=== PATIENT | female | born 1965 | race Caucasian/White ===

== ENCOUNTER 2020-09-14 20:30 | Emergency (ER) | payer MEDICARE ==
[2020-09-14] MEDS ORDERED: HYDROmorphone 0.5 MG/0.5 ML Syringe IVPUSH ONE (21:06)
[2020-09-14] MEDS ORDERED: Sodium Chloride 0.9% 1,000 ML IV ONE (21:06)
[2020-09-14] MEDS ORDERED: Ondansetron 4 MG/2 ML SDV ONE (21:28)
[2020-09-14] MEDS ORDERED: Ondansetron 4 MG/2 ML SDV IVPUSH ONE (21:32)
--- NOTE | 2020-09-14 22:16 | CRLCT ---
INDICATION: Right lower quadrant pain COMPARISON: None available TECHNIQUE: CT examination of the abdomen and pelvis was performed without contrast enhancement using 3 mm thick axial sections from the lung bases through the pubic symphysis. Oral contrast was not administered. Please note that all CT scans at this facility use dose modulation, iterative reconstruction, and/or weight-based dosing when appropriate to reduce radiation dose to as low as reasonably achievable. FINDINGS: In the abdomen, the unenhanced liver, spleen, pancreas, and adrenals are normal in appearance. The unenhanced kidneys are normal in appearance. The gallbladder is normal in appearance. The abdominal aorta is normal in caliber with no sign of dilatation. There is no sign of retroperitoneal mass or adenopathy. The stomach, loops of small bowel, and colon in the abdomen are normal in appearance. There is a tiny fat containing periumbilical hernia. In the pelvis, the appendix is normal in appearance with no sign of inflammatory process. The loops of small bowel and colon in the pelvis are normal in appearance. The uterus is absent and the adnexal regions are normal in appearance. The urinary bladder is normal in appearance. There is no sign of pelvic or inguinal mass or adenopathy. There is no sign of free air or free fluid in the abdomen or pelvis. There are mild patchy infiltrates in the posterior portion of the right lower lobe on the most superior images on with minimal patchy infiltrate in the posterior left lower lobe in the same region. These could be early atypical pneumonia such as COVID-19. Recommend correlation with the clinical history. There is mild L1-2 and L2-3 disc degenerative disease. The rest of the osseous structures in the lumbar spine are normal in appearance. The distal 2 coccygeal segments are absent, possibly from erosion or resection. IMPRESSION: Nothing seen to explain the patient`s right lower quadrant pain. Normal appearance of the appendix, urinary system, and right adnexal region. Normal CT of the abdomen without contrast. Normal CT of the pelvis without contrast. Mild posterior right lower lobe and minimal posterior left lower lobe patchy infiltrates could represent an early atypical pneumonia such as COVID-19. Recommend correlation with the clinical exam. Please note that all CT scans at this facility use dose modulation, iterative reconstruction, and/or weight-based dosing when appropriate to reduce radiation dose to as low as reasonably achievable. Dictated by Alvarado Dunne MD @ Sep 14 2020 10:08PM Signed by Dr. Alvarado Dunne @ Sep 14 2020 10:15PM
--- NOTE | 2020-09-14 22:28 | EDM.PDOC ---
ED HPI GENERAL MEDICAL PROBLEM - General Chief Complaint: Abdominal Pain Stated Complaint: PAIN LOWER RIGHT SIDE Time Seen by Provider: 09/14/20 20:45 Source of Information: Reports: Patient History Limitations: Reports: No Limitations - History of Present Illness INITIAL COMMENTS - FREE TEXT/NARRATIVE: 55-year-old female with worsening right lower quadrant pain for the past 2 weeks. Today it became very painful so she came in to have it checked. Intermittent chills but no fever, some nausea but no vomiting, no bowel changes or urinary symptoms. No radiation of pain to the back. Onset: Gradual Duration: Week(s): (2 weeks) Location: Reports: Abdomen (Right lower quadrant in the abdomen) Worsens with: Reports: Other (Walking, movement or trying to sit increases pain) Right Lower Abdomen Pain Score (Numeric/FACES): 6 - Related Data Allergies Allergy/AdvReac Type Severity Reaction Status Date / Time mold Allergy Cannot Verified 09/14/20 20:47 Remember Sayqyef-Quh-Uon Reductase Allergy Cannot Verified 09/14/20 20:47 Inhibitor Remember venom-honey bee Allergy Hives Verified 09/14/20 20:47 [bee venom (honey bee)] morphine AdvReac Vomiting Verified 09/14/20 20:47 Home Meds: Home Meds Celecoxib [CeleBREX] 200 mg PO DAILY 04/07/14 [History] Cyclobenzaprine [Flexeril] 10 mg PO TID PRN 04/07/14 [History] Gabapentin 600 mg PO QID 04/07/14 [History] PARoxetine HCL [Paxil] 40 mg PO DAILY 04/07/14 [History] Albuterol Sulfate [Proair Hfa] 2 puff ORAL.INH Q6H PRN 06/15/16 [History] Amitriptyline [Elavil] 50 mg PO BEDTIME 06/15/16 [History] EPINEPHrine [Epipen 2-Wilner] 0.3 ml IM ASDIRECTED PRN 06/15/16 [History] Fenofibrate Nanocrystallized [Tricor] 145 mg PO DAILY 06/15/16 [History] Fluconazole [Diflucan] 1 tab PO ASDIRECTED 06/15/16 [History] Lerona-3 Fatty Acids [Lerona-3] 1 tab PO DAILY 06/15/16 [History] Hydrocodone/Acetaminophen [Hydrocodon-Acetaminophen 5-325] 1 each PO Q4HR PRN 12/02/16 [History] Past Medical History HEENT History: Reports: Impaired Vision Respiratory History: Reports: Asthma Gastrointestinal History: Reports: Cholelithiasis Genitourinary History: Reports: None DIRECT CARE PROVIDER History: Reports: Dysfunctional Uterine Bleeding, Other DIRECT CARE PROVIDER History: partial hysterectomy Musculoskeletal History: Reports: Arthritis, Back Pain, Chronic, Fibromyalgia Psychiatric History: Reports: Anxiety, Depression - Infectious Disease History Infectious Disease History: Reports: Chicken Pox, Shingles - Past Surgical History Respiratory Surgical History: Reports: None GI Surgical History: Reports: Cholecystectomy, Colonoscopy Female Surgical History: Reports: Hysterectomy Neurological Surgical History: Reports: None Other Musculoskeletal Surgeries/Procedures:: broken tail bone healed wrong way Social & Family History - Tobacco Use Tobacco Use Status *Q: Current Every Day Tobacco User Years of Tobacco use: 25 Packs/Tins Daily: 1 - Caffeine Use Caffeine Use: Reports: Coffee, Soda, Tea - Alcohol Use Date of Last Drink: 08/30/20 - Recreational Drug Use Recreational Drug Use: No ED ROS GENERAL - Review of Systems Review Of Systems: See Below Constitutional: Reports: Chills HEENT: Reports: No Symptoms Respiratory: Denies: Shortness of Breath Cardiovascular: Denies: Chest Pain Endocrine: Denies: Fatigue GI/Abdominal: Reports: Abdominal Pain, Nausea. Denies: Constipation, Diarrhea, Vomiting : Reports: No Symptoms Musculoskeletal: Reports: Other (Chronic back pain, fibromyalgia) Skin: Reports: No Symptoms Neurological: Denies: Headache ED EXAM, GI/ABD - Physical Exam Exam: See Below Exam Limited By: No Limitations General Appearance: Alert, No Apparent Distress Eyes: Bilateral: Normal Appearance Head: Atraumatic Respiratory/Chest: No Respiratory Distress, Lungs Clear Cardiovascular: Regular Rate, Rhythm GI/Abdominal Exam: Soft, Tender (She is tender in the extreme right lower abdomen just above the inguinal ligament, there is no distention or bruising. She does have some rebound tenderness) Extremities: Normal Inspection Neurological: Alert, Oriented Psychiatric: Normal Affect, Normal Mood Skin Exam: Warm, Dry Course - Vital Signs Last Recorded V/S: Last Vital Signs Temp 97.3 F 09/14/20 20:48 Pulse 104 H 09/14/20 22:33 Resp 16 09/14/20 22:33 BP 124/52 L 09/14/20 22:33 Pulse Ox 95 09/14/20 22:33 - Orders/Labs/Meds Labs: Laboratory Tests 09/14/20 09/14/20 09/14/20 Range/Units 21:20 21:20 21:30 WBC 11.6 H (4.5-11.0) K/uL RBC 5.07 (3.30-5.50) M/uL Hgb 14.8 (12.0-15.0) g/dL Hct 44.6 (36.0-48.0) % MCV 88 (80-98) fL MCH 29 (27-31) pg MCHC 33 (32-36) % Plt Count 364 (150-400) K/uL Neut % (Auto) 65 (36-66) % Lymph % (Auto) 27 (24-44) % [place] % (Auto) 6 (2-6) % Eos % (Auto) 1 L (2-4) % Baso % (Auto) 0 (0-1) % Sodium 141 (140-148) mmol/L Potassium 3.8 (3.6-5.2) mmol/L Chloride 105 (100-108) mmol/L Carbon Dioxide 24 (21-32) mmol/L Anion Gap 11.6 (5.0-14.0) mmol/L BUN 15 (7-18) mg/dL Creatinine 1.1 H (0.6-1.0) mg/dL Est Cr Clr Drug Dosing 45.65 mL/min Estimated GFR (MDRD) 51 L (>60) Glucose 98 (74-106) mg/dL Calcium 8.8 (8.5-10.1) mg/dL Total Bilirubin 0.3 (0.2-1.0) mg/dL AST 19 (15-37) U/L ALT 26 (12-78) U/L Alkaline Phosphatase 61 (46-116) U/L Total Protein 7.5 (6.4-8.2) g/dL Albumin 3.7 (3.4-5.0) g/dL Globulin 3.8 H (2.3-3.5) g/dL Albumin/Globulin Ratio 1.0 L (1.2-2.2) Urine Color Yellow (YELLOW) Urine Appearance Clear (CLEAR) Urine pH 6.5 (5.0-8.0) Ur Specific Gilman 1.025 (1.008-1.030) Urine Protein Negative (NEGATIVE) mg/dL Urine Glucose (UA) Negative (NEGATIVE) mg/dL Urine Ketones Negative (NEGATIVE) mg/dL Urine Occult Blood Negative (NEGATIVE) Urine Nitrite Negative (NEGATIVE) Urine Bilirubin Negative (NEGATIVE) Urine Urobilinogen 1.0 (0.2-1.0) EU/dL Ur Leukocyte Esterase Trace H (NEGATIVE) Urine RBC 0-5 (0-5) Urine WBC 5-10 H (0-5) Ur Epithelial Cells Rare Amorphous Sediment Not seen Urine Bacteria Rare Urine Mucus Not seen Meds: Medications Discontinued Medications Generic Name Dose Route Start Last Admin Trade Name Freq PRN Reason Stop Dose Admin Hydromorphone HCl 0.5 mg 09/14/20 21:06 09/14/20 21:20 Dilaudid IVPUSH 09/14/20 21:07 0.5 mg ONETIME ONE Administration Sodium Chloride 1,000 mls @ 500 mls/hr 09/14/20 21:06 09/14/20 21:20 Normal Saline IV 09/14/20 23:05 500 mls/hr ONETIME ONE Administration Ondansetron HCl Confirm 09/14/20 21:28 Zofran Administered 09/14/20 21:29 Dose 4 mg .ROUTE .STK-MED ONE Ondansetron HCl 4 mg 09/14/20 21:32 09/14/20 21:35 Zofran IVPUSH 09/14/20 21:33 4 mg ONETIME ONE Administration - Re-Assessments/Exams Free Text/Narrative Re-Assessment/Exam: 09/14/20 22:26 CBC reveals just a slight elevation in her white count at 11,600, UA is generally clear and the rest of her labs are reassuring. A CT scan of the abdomen and pelvis was negative. I explained to the patient that there is nothing surgical or infectious at this time, she should recheck with her primary provider Elizabeth Campbell in the next few days and consider an ultrasound or further work-up. Departure - Departure Time of Disposition: 22:38 Disposition: Home, Self-Care 01 Clinical Impression: Abdominal pain Qualifiers: Abdominal location: right lower quadrant Qualified Code(s): R10.31 - Right lower quadrant pain - Discharge Information Instructions: Abdominal Pain, Adult, [id number] Referrals: Adrian,Elizabeth A, CNM [Primary Care Provider] - Forms: ED Department Discharge Care Plan Goals: Continue with gabapentin and Tylenol, increase activity as tolerated and recheck on Monday as planned. Return to the emergency room if worsening such as fever or worsening pain Sepsis Event Note (ED) - Evaluation Sepsis Screening Result: No Definite Risk - Focused Exam Vital Signs: Vital Signs Temp Pulse Resp BP Pulse Ox 09/14/20 22:33 104 H 16 124/52 L 95 09/14/20 20:48 97.3 F 115 H 16 139/76 97 09/14/20 20:43 97.3 F 115 H 16 139/76 97
[2020-09-14 22:34] VITALS: BP 124/52; PULSE 104
== END 2020-09-14 22:39 | disposition home or self-care (01) ==
LOC: JP.ED 20:30
DX: R10.31 Right lower quadrant pain (principal); R11.0 Nausea; J45.909 Unspecified asthma, uncomplicated; Z72.0 Tobacco use; Z91.048 Other nonmedicinal substance allergy status; Z88.8 Allergy status to other drugs, medicaments and biological substances; Z88.5 Allergy status to narcotic agent; Z91.030 Bee allergy status; Z79.899 Other long term (current) drug therapy
CPT/HCPCS: 36415; 74176; 80053; 81001; 85025; 96374; 96375; 99284; J1170; J2405; J7030; 99282

== ENCOUNTER 2020-10-30 09:54 | Day surgery (SDC) | payer MEDICARE ==
[2020-10-30] MEDS ORDERED: Sodium Chloride 0.9% 1,000 ML IV SCH (10:15)
[2020-10-30] MEDS ORDERED: fentaNYL 100 MCG/2 ML SDV ONE (10:19)
[2020-10-30] MEDS ORDERED: Propofol 200 MG/20 ML SDV ONE (10:19)
[2020-10-30] MEDS ORDERED: Midazolam 1 MG/ML 2 ML SDV ONE (10:19)
--- NOTE | 2020-10-30 12:18 | OR ---
DATE OF PROCEDURE: 10/30/2020 SURGEON: Aguila Cortez MD PROCEDURE: Colonoscopy. FINDINGS: Normal colonoscopy. COMPLICATIONS: None. SHANK TAPER: None. ANESTHESIA: MAC. PREOPERATIVE DIAGNOSIS: Screening colonoscopy. POSTOPERATIVE DIAGNOSIS: Screening colonoscopy. RISKS: Risks, benefits, alternatives, and limitations including, but not limited to infection, bleeding, perforation, false positives and false negatives were explained to the patient who wished to proceed. PROCEDURE IN DETAIL: The patient was placed in left lateral decubitus position. Digital rectal exam was performed without abnormality. Scope was introduced and advanced atraumatically to the ileocecal valve. A photo was taken of this. Scope was brought back to the ascending, transverse, descending colon, and retroflexed. No evidence of old or new blood. No masses. No polyps. Prep was acceptable. Approximately 90% of the luminal surface could be seen, but some solid and liquid stool remaining. No abnormalities on retroflexion. The patient tolerated the procedure well. Aguila Cortez MD /[id number]
[2020-10-30 12:52] VITALS: BP 125/82; PULSE 85
== END 2020-10-30 12:00 | disposition home or self-care (01) ==
LOC: JP.SDS 09:54
PROVIDERS: ATTEND Surgery
DX: Z12.11 Encounter for screening for malignant neoplasm of colon (principal); I10 Essential (primary) hypertension; F43.10 Post-traumatic stress disorder, unspecified; F17.200 Nicotine dependence, unspecified, uncomplicated; Z88.5 Allergy status to narcotic agent
CPT/HCPCS: G0121; J2250; J2704; J3010; J7030